=== PATIENT | male | born 1970 ===

== ENCOUNTER 2023-10-04 09:23 | Emergency (ER) | payer OTHER ==
[~2023-10-04] VITALS: Ht 185.4 cm; Wt 106.6 kg
[2023-10-04 11:19] LABS: HEMATOCRIT 42.3 % (39.0-48.0); HEMOGLOBIN 14.3 g/dL (13-16.00); MEAN CELL VOLUME 86.2 fL (80.0-100.00); MEAN CORPUSCULAR HEMOGLOBIN 29.1 pg (27.00-32.0); MEAN CORPUSCULAR HGB CONC 33.7 g/dl (32.0-36.0)
[2023-10-04 11:21] LABS: PLATELET COUNT 128 K/uL (150-450)
== END 2023-10-04 12:35 | disposition home or self-care (01) ==
LOC: ER 09:23
PROVIDERS: General Practice
DX: J10.1 Influenza due to other identified influenza virus with other respiratory manifestations (principal); Z20.822 Contact with and (suspected) exposure to COVID-19